=== PATIENT | male | born 1995 | race Caucasian/White ===

== ENCOUNTER 2021-06-07 17:13 | Emergency (ER) | payer OTHER, SELFPAY ==
[2021-06-07 17:17] VITALS: PULSE 79; RESP 16; TEMP 36.7; O2SAT 99
--- NOTE | 2021-06-07 18:37 | ED.RECABL ---
HPI - Recheck/Abnormal Lab/Rx General Chief Complaint: Recheck/Abnormal Lab/Rx Stated Complaint: wants covid test Time Seen by Provider: 06/07/21 18:07 Source: patient Mode of arrival: Ambulatory History of Present Illness HPI narrative: 26M nonsmoker, active [employer] is fully immunized and presents with request for a COVID test after an exposure on Saturday. He has no symptoms but need to test for work. Perhaps he is a bit fatigued but states that he has felt this way for quite some time as he is over worked and stressed. He denies headache, runny nose or sore throat. He has had no fever chills. He denies any cough, chest pain or difficulty breathing. He has had no GI symptoms such as nausea, vomiting or diarrhea Review of Systems Review of Systems Narrative: GENERAL: Denies chills, fatigue, malaise, fever, sweats. HEENT: Denies sinus pain, ear pain, sore throat, difficulty swallowing, dizziness. RESPIRATORY: Denies dyspnea, cough, wheezing, hemoptysis, sputum. CARDIOVASCULAR: Denies chest pain, palpitations, orthopnea, edema, GASTROINTESTINAL: Denies nausea, vomiting, abdominal pain, diarrhea, constipation, melena. : Denies dysuria, frequency, incontinence, hematuria, urinary retention. MUSCULOSKELETAL: denies weakness, joint pain, or bony pain SKIN: Denies rash, skin lesions, or other NEUROLOGIC: Denies weakness, headache, numbness, change in speech, confusion, seizures, incoordination. PSYCHIATRIC: No concerning psychosocial issues. 12 point review of systems is negative except for those stated above Exam Narrative Exam Narrative: GEN: AOx3 and in mild distress EYES: Pupils are equal, round, and reactive to light and accommodation. Extraoccular muscles are intact bilaterally. There is no subconjunctival hemorrhage or exudate. CHEST: Lungs are clear to auscultation bilaterally and free of wheezes, rales, or rhonchi. Heart rate is regular rhythm, there are no murmurs, clicks, rubs, or gallops. There is no chest wall tenderness. ABD: Abdomen is soft and nontender. There is no guarding or rebound. Bowel sounds are normal in all 4 quadrants. There is no mass or organomegaly. EXT: Full painless ROM of all extremities with no loss of sensation or strength. SKIN: Warm, pink, and dry. No erythema or rash Initial Vital Signs Initial Vital Signs: Vital Signs Temperature 98.1 F 06/07/21 17:17 Pulse Rate 79 06/07/21 17:17 Respiratory Rate 16 06/07/21 17:17 Pulse Oximetry 99 06/07/21 17:17 Course Orders Ordered: ED Orders 06/07/21 17:25 COVID19 -Nasal swab/Pre-Proc Stat Vital Signs Vital signs: Vital Signs - 8 hr 06/07/21 17:17 Temperature 98.1 F Pulse Rate 79 Respiratory Rate 16 Pulse Oximetry 99 Discharge Plan Departure Patient Disposition: Home Clinical Impression: Feared complaint without diagnosis, Close exposure to 2019 novel coronavirus Activity Restrictions/Additional Instructions: Your COVID test is still pending, but presumed to be negative. As we discussed I will give you the info we'd send with a patient that tested positive *What to do: * per recommendations from the CDC and the [facility] Department of Health * stay home except to get medical care. Restrict activities outside your home, except for getting medical care. Do not go to work, school, or public areas. Avoid using public transportation, ride sharing, or taxis. * separate yourself from other people in your home. * call ahead before visiting your doctor * Wear a facemask * Cover your coughs and sneezes * Clean your hands often * Avoid sharing household items * Clean all high-touch services every day * Monitor your symptoms and seek prompt medical attention if your illness is worsening, particularly with difficulty in breathing. You may discontinue your isolation when: 1. You have been fever-free for at least 24 hours without the use of fever reducing medication, AND 2. Your symptoms are getting better, AND 3. At least 5 days have passed since symptoms first appeared 4. If you have fever, continue to stay home until fever resolves Individuals with laboratory confirmed COVID-19 who have not had any symptoms may discontinue home isolation when at least 5 days have passed since the date of their first COVID-19 diagnostic test and have had no subsequent illness You should notifiy any friends and family that have been in close contact *If up to date on COVID Vaccines, then they do not need to quarantine unless symptoms develop. Get tested on day 5 (or sooner if symptoms develop). Take precautions and watch for symptoms until day 10 *If NOT up to date on COVID Vaccines, then CDC recommends quarantine for at least 5 full days. Wear a well fitted mask at home if you must be around others. If they develop symptoms they should get tested. If they remain asymptomatic they should get tested on day 5. They should take precautions and monitor for symptoms until day 10.
[2021-06-07 18:44] LABS: COVID19 -Nasal RAPID Negative (Negative)
== END 2021-06-07 18:39 | disposition home or self-care (01) ==
PROVIDERS: Emergency Medicine; Emergency Provider Emergency Medicine
DX: Z20.822 Contact with and (suspected) exposure to COVID-19 (principal)
CPT/HCPCS: 87635; 99281; 99282; C9803

== ENCOUNTER 2021-11-14 08:32 | Emergency (ER) | payer OTHER, SELFPAY ==
[2021-11-14 09:01] VITALS: BP 134/85; PULSE 104; RESP 18; TEMP 37.1; O2SAT 98
[2021-11-14 09:31] LABS: COVID19 -Nasal RAPID Negative (Negative)
--- NOTE | 2021-11-14 10:21 | ED_ITS ---
HPI - URI/Sore Throat General Chief Complaint: Fever Stated Complaint: Muscle soreness all over body, fever Time Seen by Provider: 11/14/21 10:16 Source: patient Mode of arrival: Ambulatory History of Present Illness HPI Narrative: Patient is a healthy 26-year-old male who presents with muscle pain all over. He says he really does not exercise he did some very light yd work 3 days ago may need walked around and sprayed some weeds. He had fever yesterday. His right upper arm biceps area he says feels extremely tender it is swollen. However his left arm her to legs hurt his calves hurt his stomach an ABS even feel like a her. He denies cough or chest pain. He took Aleve last night which seemed to help. He is in the he had a lab draw from his right arm 5 days ago but no IV was placed. Related Data Allergies Allergy/AdvReac Type Severity Reaction Status Date / Time No Known Drug Allergies Allergy Verified 11/14/21 09:03 Review of Systems Review of Systems Narrative: GENERAL: + fever, see HPI HEENT: Denies throat pain RESPIRATORY: Denies dyspnea, cough, wheezing CARDIOVASCULAR: Denies chest pain, palpitations GASTROINTESTINAL: Denies nausea, vomiting MUSCULOSKELETAL: See HPI SKIN: No rash, no laceration, no pruritus NEUROLOGIC: Denies weakness, dizziness, headache, numbness 8 point review of systems is negative except for those stated above and HPI Patient History Social History Smoking Status: Current every day smoker Smoking Status: Current every day smoker tobacco type: vaping alcohol intake frequency: a few times a week Substance Use Type: does not use Exam Initial Vital Signs Initial Vital Signs: Vital Signs Temperature 98.7 F 11/14/21 09:01 Pulse Rate 104 H 11/14/21 09:01 Respiratory Rate 18 11/14/21 09:01 Blood Pressure 134/85 11/14/21 09:01 Pulse Oximetry 98 11/14/21 09:01 Oxygen Delivery Method 11/14/21 09:01 GENERAL: Well-appearing 26-year-old male and in no acute distress. HEENT: Head atraumatic,EOMI, pupils reactive, face symmetric, moist mucous membranes CARDIOVASCULAR: Regular rate and rhythm without murmurs, rubs or gallops. RESPIRATORY: Breath sounds equal bilaterally, no wheezes rales or rhonchi. ABDOMEN: Soft, nontender. Normoactive bowel sounds all 4 quadrants. No guarding or rebound. EXTREMITIES: Normal range of motion, no clubbing. Pain and swelling in right upper arm mild feels tight left arm does not feel as tight no other swelling Neurovascularly intact NEUROLOGICAL: Alert and oriented x4. SKIN: Warm, dry, no laceration, no petechiae, no rashes or lesions. Course Orders Ordered: ED Orders 11/14/21 08:55 COVID19 -Nasal RAPID/Pre-Proc Stat 11/14/21 10:57 CBC Auto Diff [Complete Blood Count AUTO DIFF] Stat CMP [Comprehensive Metabolic Panel] Stat CPK [Creatine Kinase] Stat Lactate (Lactic Acid) Stat 11/14/21 11:00 Influenza A & B (PCR) Stat 11/14/21 11:28 periph venous up extrem rt Stat Discontinued Medications Sodium Chloride (Normal Saline 0.9%) 1,000 mls @ 1,000 mls/hr IV BOLUS ONE Stop: 11/14/21 11:26 Last Infusion: 11/14/21 13:02 Dose: 0 mls/hr Documented By: Admin: 11/14/21 10:45 Dose: 1,000 mls/hr Documented By: CAMILO Ketorolac Tromethamine (Ketorolac 30 Mg/Ml Vial) 15 mg IV NOW ONE Stop: 11/14/21 10:28 Last Admin: 11/14/21 11:49 Dose: 15 mg Documented By: ASHLEE(2) Vital Signs Vital signs: Vital Signs - 8 hr 11/14/21 09:01 11/14/21 13:11 Temperature 98.7 F Pulse Rate 104 H 91 H Respiratory Rate 18 16 Blood Pressure 134/85 128/73 Pulse Oximetry 98 99 Oxygen Delivery Method Room Air Room Air MDM - URI/Sore Throat Lab Data Result diagrams: 11/14/21 10:57 11/14/21 10:57 Labs: Lab Results 11/14/21 11/14/21 11/14/21 Range/Units 08:55 10:57 10:57 WBC 4.2 L (4.5-11.0) X10^3/uL RBC 5.11 (4.5-5.9) X10^6/uL Hgb 15.5 (13.5-17.5) g/dL Hct 43.4 (41-53) % MCV 84.9 (80-100) fL MCH 30.2 (26-34) PG MCHC 35.6 (30-36) % RDW 13.5 (11.6-14.8) % Plt Count 129 L (150-400) X10^3/uL Neut % (Auto) 61.5 (50-75) % Lymph % (Auto) 22.8 L (25-40) % Winston % (Auto) 12.6 (3-14) % Eos % (Auto) 2.2 (2-4) % Baso % (Auto) 0.9 (0-2) % Neut # (Auto) 2600 (2184-3832) /uL Lymph # (Auto) 1000 L (5082-9197) /uL Winston # (Auto) 500 (0-900) /uL Eos # (Auto) 100 (0-450) /uL Baso # (Auto) 0 (0-100) /uL Sodium 137 (137-145) mmol/L Potassium 4.3 (3.4-5.1) mmol/L Chloride 103 (98-107) mmol/L Carbon Dioxide 26 (22-32) mmol/L BUN 15 (9-20) mg/dL Creatinine 1.16 (0.66-1.25) mg/dL Estimated GFR > 60 (>60) mL/min BUN/Creatinine Ratio 12.9 (6-22) Glucose 95 (70-100) mg/dL Lactate (0.7-2.1) mmol/L Calcium 8.8 (8.4-10.2) mg/dL Total Bilirubin 1.5 H (0.2-1.3) mg/dL AST 31 (17-59) IU/L ALT 40 (<50) IU/L Alkaline Phosphatase 55 (38-126) U/L Total Creatine Kinase 76 (55-170) U/L Total Protein 7.3 (6.3-8.2) g/dL Albumin 4.5 (3.5-5.0) g/dL Globulin 2.8 (1.7-4.1) g/dL Albumin/Globulin Ratio 1.6 (1.0-2.8) SARS-CoV-2 (PCR) Negative (Negative) Influenza A (RT-PCR) (NEGATIVE) Influenza B (RT-PCR) (NEGATIVE) 11/14/21 11/14/21 Range/Units 10:57 11:00 WBC (4.5-11.0) X10^3/uL RBC (4.5-5.9) X10^6/uL Hgb (13.5-17.5) g/dL Hct (41-53) % MCV (80-100) fL MCH (26-34) PG MCHC (30-36) % RDW (11.6-14.8) % Plt Count (150-400) X10^3/uL Neut % (Auto) (50-75) % Lymph % (Auto) (25-40) % Winston % (Auto) (3-14) % Eos % (Auto) (2-4) % Baso % (Auto) (0-2) % Neut # (Auto) (5268-1205) /uL Lymph # (Auto) (8448-9766) /uL Winston # (Auto) (0-900) /uL Eos # (Auto) (0-450) /uL Baso # (Auto) (0-100) /uL Sodium (137-145) mmol/L Potassium (3.4-5.1) mmol/L Chloride (98-107) mmol/L Carbon Dioxide (22-32) mmol/L BUN (9-20) mg/dL Creatinine (0.66-1.25) mg/dL Estimated GFR (>60) mL/min BUN/Creatinine Ratio (6-22) Glucose (70-100) mg/dL Lactate 0.8 (0.7-2.1) mmol/L Calcium (8.4-10.2) mg/dL Total Bilirubin (0.2-1.3) mg/dL AST (17-59) IU/L ALT (<50) IU/L Alkaline Phosphatase (38-126) U/L Total Creatine Kinase (55-170) U/L Total Protein (6.3-8.2) g/dL Albumin (3.5-5.0) g/dL Globulin (1.7-4.1) g/dL Albumin/Globulin Ratio (1.0-2.8) SARS-CoV-2 (PCR) (Negative) Influenza A (RT-PCR) Flu a negative (NEGATIVE) Influenza B (RT-PCR) Flu b negative (NEGATIVE) Imaging Data US - DVT: Radiologist's Impression: Ultrasound Report Signed Patient: Jono Freeman MR#: [id number] : 1995 Acct:[id number] Age/Sex: 26 / M Date of Service: 11/14/21 Loc: ED Accession Number: [id number] ?? Procedure: US periph venous up extrem rt Ordering Provider: Chantelle Armstrong D.O. PROCEDURE:? US PERIPH VENOUS UP EXTREM RT ? INDICATIONS:? PAIN ? TECHNIQUE:? Real-time imaging, as well as color and pulse Doppler interrogation, was performed of the right upper extremity deep veins from the inferior neck to the antecubital fossa.? ? COMPARISON:? None. ? FINDINGS:? The internal jugular vein, visualized portions of the subclavian vein, axillary, and brachial veins are free of intraluminal thrombus.? Where ph ysically possible, the veins are normally compressible.? Color and pulse Doppler demonstrate normal intraluminal flow, with expected phasicity and pulsatility.? Additional scanning of the cephalic and basilic veins of the superficial system demonstrate normal compressibility, without thrombus.? ? IMPRESSION:? No deep venous thrombosis. ? ? Dictated by: Tosha Muir M.D. on 11/14/2021 at 12:23 ? ? Approved by: Tosha Muir M.D. on 11/14/2021 at 12:24 ? MDM Narrative Medical decision making narrative: The patient having significant muscle aches more in his upper arms. And more specifically in his right arm which does feel more swollen. If concern for rhabdomyolysis possibly influenza. However both of those are negative. Patient did have a blood draw from his right arm about 5 days ago no IV was placed no evidence of DVT. Patient's blood work is overall reassuring. Probably has some upper respiratory like illness recommend retesting for COVID. At this time no need for admission Discharge Plan Departure Patient Disposition: Home Clinical Impression: Upper respiratory infection Instructions: DI for Viral Upper Respiratory Infection -- Adult Activity Restrictions/Additional Instructions: *You have been diagnosed with upper respiratory infection *What to do: At this time her body aches are likely due to some sort of infection but your influenza and COVID are negative today. Please continue to rest and increase fluid intake *Continue to take medications as directed Tylenol 1000 mg every 6 hours [id number] Motrin 600 mg every 6 hours if needed for [id number] *Follow up with your primary care provider in 2-3 days or call [phone] *Return to ER if you should have inability to tolerate fluids increased pain or any new, worsening or concerning symptoms Visit Report Forms: Patient Portal/API
[2021-11-14] MEDS: SODIUM CHLORIDE 0.9% 1,000 ML 1000 ML IV (10:45)
[2021-11-14 11:04] LABS: Add Manual Diff / Slide Review NO; Basophils Absolute Auto 0 /uL (0-100); Basophils Percent Auto 0.9 % (0-2); Eosinophils Absolute Auto 100 /uL (0-450); Eosinophils Percent Auto 2.2 % (2-4); Hematocrit 43.4 % (41-53); Hemoglobin 15.5 g/dL (13.5-17.5); Lymphocytes Absolute Auto 1000 /uL (1100-4500); Lymphocytes Percent Auto 22.8 % (25-40); Mean Corpuscular HGB Conc 35.6 % (30-36); Mean Corpuscular Hemoglobin 30.2 PG (26-34); Mean Corpuscular Volume 84.9 fL (80-100); Monocytes Absolute Auto 500 /uL (0-900); Monocytes Percent Auto 12.6 % (3-14); Neutrophils Absolute Auto 2600 /uL (1500-7000); Neutrophils Percent Auto 61.5 % (50-75); Platelet Count 129 X10^3/uL (150-400); Red Blood Cell Count 5.11 X10^6/uL (4.5-5.9); Red Cell Distribution Width 13.5 % (11.6-14.8); White Blood Cell Count 4.2 X10^3/uL (4.5-11.0)
[2021-11-14 11:20] LABS: Alanine Aminotransferase 40 IU/L (<50); Albumin 4.5 g/dL (3.5-5.0); Albumin Globulin Ratio 1.6 (1.0-2.8); Alkaline Phosphatase 55 U/L (38-126); Aspartate Aminotransferase 31 IU/L (17-59); BUN Creatinine Ratio 12.9 (6-22); Bilirubin Total 1.5 mg/dL (0.2-1.3); Blood Urea Nitrogen 15 mg/dL (9-20); Calcium 8.8 mg/dL (8.4-10.2); Carbon Dioxide 26 mmol/L (22-32); Chloride 103 mmol/L (98-107); Creatine Kinase 76 U/L (55-170); Estimated Glomerular Filt Rate > 60 mL/min (>60); Globulin 2.8 g/dL (1.7-4.1); Glucose 95 mg/dL (70-100); HEMOLYSIS < 15 (0-50); Lactate (Lactic Acid) 0.8 mmol/L (0.7-2.1); Potassium 4.3 mmol/L (3.4-5.1); Sodium 137 mmol/L (137-145); Total Protein 7.3 g/dL (6.3-8.2)
--- NOTE | 2021-11-14 11:28 | DI.US.S_ITS ---
PROCEDURE: US PERIPH VENOUS UP EXTREM RT INDICATIONS: PAIN TECHNIQUE: Real-time imaging, as well as color and pulse Doppler interrogation, was performed of the right upper extremity deep veins from the inferior neck to the antecubital fossa. COMPARISON: None. FINDINGS: The internal jugular vein, visualized portions of the subclavian vein, axillary, and brachial veins are free of intraluminal thrombus. Where physically possible, the veins are normally compressible. Color and pulse Doppler demonstrate normal intraluminal flow, with expected phasicity and pulsatility. Additional scanning of the cephalic and basilic veins of the superficial system demonstrate normal compressibility, without thrombus. IMPRESSION: No deep venous thrombosis. Dictated by: Tosha Muir M.D. on 11/14/2021 at 12:23 Approved by: Tosha Muir M.D. on 11/14/2021 at 12:24
[2021-11-14] MEDS: KETOROLAC 30 MG/ML VIAL 15 MG IV (11:49)
[2021-11-14 12:38] LABS: Influenza A - CEPHEID Flu A NEGATIVE (NEGATIVE); Influenza B - CEPHEID Flu B NEGATIVE (NEGATIVE)
[2021-11-14 13:11] VITALS: BP 128/73; PULSE 91; RESP 16; O2SAT 99
== END 2021-11-14 13:14 | disposition home or self-care (01) ==
PROVIDERS: Emergency Provider Emergency Medicine
DX: J06.9 Acute upper respiratory infection, unspecified (principal); Z20.822 Contact with and (suspected) exposure to COVID-19
CPT/HCPCS: 36415; 80053; 82550; 83605; 85025; 87502; 87635; 93971; 96361; 96374; 99284; C9803; J1885

== ENCOUNTER 2022-02-17 23:50 | Emergency (ER) | payer OTHER, SELFPAY ==
[2022-02-18 00:01] VITALS: BP 138/98; PULSE 89; O2SAT 99
[2022-02-18 00:03] VITALS: BP 138/98; PULSE 92; RESP 18; TEMP 37.2; O2SAT 99; BMI 29.8
[2022-02-18 00:29] LABS: COVID19 -Nasal RAPID Negative (Negative)
[2022-02-18 00:30] VITALS: BP 130/85; PULSE 93; O2SAT 96
[2022-02-18 01:00] VITALS: BP 134/86; PULSE 96; O2SAT 94
--- NOTE | 2022-02-18 01:06 | ED.GENADULT ---
HPI - General Adult General Chief complaint: Upper Respiratory Symptoms Stated complaint: wants to find out if he has covid Time Seen by Provider: 02/17/22 23:55 Source: patient Mode of arrival: Ambulatory History of Present Illness HPI narrative: 26-year-old gentleman with no significant medical history presents complaining of upper respiratory symptoms consisting of runny nose, cough, congestion, no specific fevers, no nausea, vomiting, diarrhea. He is not complaining of headaches. This evening while he was cutting onions and garlic dinner noticed that he not only could not smell them but he could not taste thumb. He did a home COVID test that was negative however his noted that it was . He comes in for definitive COVID testing. Related Data Allergies Allergy/AdvReac Type Severity Reaction Status Date / Time No Known Drug Allergies Allergy Verified 11/14/21 09:03 Review of Systems Review of Systems Narrative: Remainder of complete review of systems is otherwise unremarkable except for that included in the HPI. Patient History Social History Smoking Status: Current every day smoker Smoking Status: Current every day smoker tobacco type: vaping alcohol intake frequency: a few times a week Substance Use Type: does not use Exam Initial Vital Signs Initial Vital Signs: Vital Signs Pulse Rate 89 02/18/22 00:01 Blood Pressure 138/98 H 02/18/22 00:01 Pulse Oximetry 99 02/18/22 00:01 General: Healthy appearing, in no acute distress. Able to give a complete and coherent history. Well-nourished well-developed HEENT: Moist mucous membranes, normal sclera with reactive pupils, Neck: No cervical adenopathy, supple Respiratory: Lungs are clear to auscultation, no wheezing no rales no rhonchi. Full and symmetrical air movement Cardiac: Regular rate and rhythm no murmurs no bruits Abdomen: Soft, nontender, good bowel tones, no flank pain Skin: Warm and dry, no rashes Neurologic: Grossly neurologically intact with no obvious asymmetries or abnormalities Extremities: No trauma, well perfused Psych: Cooperative, appropriate insight and affect Course Orders Ordered: ED Orders 02/17/22 23:58 COVID19 -Nasal RAPID/Pre-Proc Stat Vital Signs Vital signs: Vital Signs - 8 hr 02/18/22 00:03 02/18/22 00:01 02/18/22 00:01 Temperature 98.9 F Pulse Rate 92 H 89 Respiratory Rate 18 Blood Pressure 138/98 H 138/98 H Pulse Oximetry 99 99 Oxygen Delivery Method Room Air Medical Decision Making Lab Data Labs: Lab Results 02/17/22 Range/Units 23:58 SARS-CoV-2 (PCR) Negative (Negative) MDM Narrative Medical decision making narrative: Otherwise healthy 26-year-old gentleman with mild upper respiratory symptoms. COVID is negative. No signs of bacterial superinfection or need for further workup at this time. Discussed conservative management and reasons to return to the emergency department should he worsen. He is safe for home discharge Discharge Plan Departure Patient Disposition: Home Clinical Impression: Upper respiratory infection, viral Instructions: DI for Viral Upper Respiratory Infection -- Adult Activity Restrictions/Additional Instructions: Thank you for coming in today Your COVID test is negative You clearly still have a low-grade virus that is causing on upper respiratory infection. Conservative management including rest, fluids, ibuprofen and Tylenol as needed for aches and fever all remain quite appropriate. If you find that you are getting worse or develop any new symptoms, please feel free to return to the emergency department for further evaluation.
[2022-02-18 01:11] VITALS: BP 135/87; PULSE 93; O2SAT 96
== END 2022-02-18 01:17 | disposition home or self-care (01) ==
PROVIDERS: Emergency Provider Emergency Medicine
DX: J06.9 Acute upper respiratory infection, unspecified (principal); Z20.822 Contact with and (suspected) exposure to COVID-19
CPT/HCPCS: 87635; 99282; C9803